=== PATIENT | female | born 1960 | race Two or more races ===

== ENCOUNTER 2025-02-12 09:15 | Emergency (ER) | payer OTHER ==
[~2025-02-12] VITALS: Ht 167.6 cm; Wt 99.8 kg
[2025-02-12] MEDS ORDERED: COZAAR100 MG PO (09:50)
[2025-02-12] MEDS ORDERED: SINVALTA (09:50)
[2025-02-12] MEDS ORDERED: FAMOTIDINE/PF 20 MG/2 ML VIAL IV STA (10:27)
[2025-02-12] MEDS ORDERED: ONDANSETRON HCL 2 MG/ML VIAL IV STA ×2 (10:27→17:00)
[2025-02-12] MEDS ORDERED: FAMOTIDINE/PF 20 MG/2 ML VIAL ONE (10:28)
[2025-02-12] MEDS ORDERED: ONDANSETRON HCL 2 MG/ML VIAL ONE ×2 (10:28→17:01)
[2025-02-12] MEDS ORDERED: 0.9 % SODIUM CHLORIDE 1,000 ML IV SCH (10:30)
[2025-02-12] MEDS ORDERED: MORPHINE SULFATE 4 MG/ML CARTRIDGE IV STA (10:39)
[2025-02-12 10:52] LABS: BASO % 0.6 % (0.1-1.2); EOS # 0.09 (0.04-0.54); EOS % 0.6 % (0.7-7.0); LYMPH # 3.44 (1.18-3.74); LYMPH % 24.8 % (19.3-53.1); MEAN PLATELET VOLUME 10.00 fl (9.4-12.4); MONO # 1.16 (0.24-0.82); MONO % 8.4 % (4.7-12.5); NEUT # 9.03 (1.56-6.13); NEUT % 65.1 % (34.0-71.1); RED CELL DISTRIBUTION WIDTH 13.7 % (11.6-14.4)
[2025-02-12 11:12] LABS: INR 0.98
[2025-02-12 11:13] LABS: ERYTHROCYTE SEDIMENTATION RATE 37 mm/hr (0-30)
[2025-02-12 11:23] LABS: URINE APPEARANCE Clear; URINE BILIRRUBIN Negative (NEGATIVE); URINE BLOOD Negative; URINE COLOR Yellow; URINE GLUCOSE Negative (NEGATIVE); URINE KETONE Negative (NEGATIVE); URINE LEUKOCYTE Negative; URINE NITRATE Negative; URINE PROTEIN Negative (NEGATIVE); URINE UROBILINOGEN 1.0 E.U./dl
[2025-02-12 11:27] LABS: URINE BACTERIA 669.5 uL (0.0-1933); URINE EPITHELIAL CELLS 23.8 uL (0.0-38.8); URINE RBC 7.3 uL (0.0-20.8); URINE WBC 7.0 uL (0.0-23.2)
[2025-02-12 11:36] LABS: URINE CAST 0.43 uL (0.0-1.40)
[2025-02-12 12:04] LABS: ALT/SGPT 23.0 U/L (12-78); AST/SGOT 19.0 U/L (15-37); BILIRUBIN TOTAL 0.42 mg/dL (0.3-1.2); BUN CREA RATIO 13.0 (7.0-25.0); CREATININE SERUM 0.94 mg/dL (0.55-1.02); GFR 60.14; GLOBULINA 3.7 G/DL (2.4-3.5); GLUCOSE FASTING 88.0 mg/dL (65-100); OSMOLALITY SERUM 286.0 MOSM/KG (275-295)
[2025-02-12] MEDS ORDERED: HYOSCYAMINE SULFATE 0.125 MG TAB.SUBL SL STA (14:48)
[2025-02-12] MEDS ORDERED: HYOSCYAMINE SULFATE 0.125 MG TAB.SUBL SL SCH (15:00)
[2025-02-12] MEDS ORDERED: CIPROFLOXACIN IN 5 % DEXTROSE 400 MG/200 ML PIGGYBAG IV ONE ×2 (15:00→15:12)
[2025-02-12] MEDS ORDERED: HYOSCYAMINE SULFATE 0.125 MG TAB.SUBL ONE (15:11)
[2025-02-12] MEDS ORDERED: PANTOPRAZOLE SODIUM 40 MG/VIAL VIAL IV ONE (20:00)
[2025-02-12] MEDS ORDERED: LOSARTAN POTASSIUM 100 MG TABLET PO STA (20:08)
[2025-02-12] MEDS ORDERED: POLYETHYLENE GLYCOL 3350 238 GM POWDER PO SCH (20:10)
[2025-02-12] MEDS ORDERED: CIPROFLOXACIN IN 5 % DEXTROSE 200 ML IV SCH (21:00)
[2025-02-13] MEDS ORDERED: MORPHINE SULFATE 4 MG/ML CARTRIDGE IV SCH
[2025-02-13] MEDS ORDERED: LACTULOSE 20 G/30 ML BLIST.PACK PO ONE (08:00)
[2025-02-13] MEDS ORDERED: MAGNESIUM HYDROXIDE 400 MG/5 ML ML PO ONE (08:15)
[2025-02-13] MEDS ORDERED: MINERAL OIL 30 ML BLIST.PACK PO ONE (08:15)
[2025-02-13 08:18] LABS: BASO % 0.6 % (0.1-1.2); EOS # 0.08 (0.04-0.54); EOS % 0.9 % (0.7-7.0); LYMPH # 2.76 (1.18-3.74); LYMPH % 29.4 % (19.3-53.1); MEAN PLATELET VOLUME 10.00 fl (9.4-12.4); MONO # 0.71 (0.24-0.82); MONO % 7.6 % (4.7-12.5); NEUT # 5.74 (1.56-6.13); NEUT % 61.1 % (34.0-71.1); RED CELL DISTRIBUTION WIDTH 13.7 % (11.6-14.4)
[2025-02-13] MEDS ORDERED: FAMOTIDINE/PF 20 MG/2 ML VIAL IV SCH (09:00)
[2025-02-13] MEDS ORDERED: ONDANSETRON HCL 2 MG/ML VIAL IV STA (13:29)
== END 2025-02-13 16:26 | disposition home or self-care (01) ==
LOC: ER 09:16
PROVIDERS: Internal Medicine Cardiovascular Disease; Physician Assistant Medical
DX: R10.11 Right upper quadrant pain (principal); I10 Essential (primary) hypertension; G47.33 Obstructive sleep apnea (adult) (pediatric); J45.909 Unspecified asthma, uncomplicated; K29.00 Acute gastritis without bleeding; Z93.4 Other artificial openings of gastrointestinal tract status; Z91.018 Allergy to other foods; K57.32 Diverticulitis of large intestine without perforation or abscess without bleeding; E86.0 Dehydration; K57.30 Diverticulosis of large intestine without perforation or abscess without bleeding